=== PATIENT | female | born 1980 | race Caucasian/White ===

== ENCOUNTER 2016-10-14 04:42 | Emergency (ER) | payer OTHER ==
[~2016-10-14] VITALS: Ht 170.2 cm; Wt 105.3 kg
[2016-10-14] MEDS ORDERED: ULTRAM50 MG PO (05:09)
[2016-10-14] MEDS ORDERED: PREDNISONE10 MG PO (05:09)
[2016-10-14] MEDS ORDERED: PEN-VEE K,VEET500 MG PO (05:09)
[2016-10-14 05:36] VITALS: BP 113/64
== END 2016-10-14 05:37 | disposition home or self-care (01) ==
LOC: EME 04:42
DX: K08.89 Other specified disorders of teeth and supporting structures (principal); R22.0 Localized swelling, mass and lump, head; F17.200 Nicotine dependence, unspecified, uncomplicated
CPT/HCPCS: 99281; 99283; J7512